=== PATIENT | male | born 1970 | race Caucasian/White ===

== ENCOUNTER → 2020-03-09 | Outpatient (CLI) | payer BC | END | disposition home or self-care (01) | LOC: MRI 02-22 15:00 | DX: M25.512 Pain in left shoulder (principal) ==

== ENCOUNTER → 2021-02-18 | Outpatient (CLI) | payer BC | END | disposition home or self-care (01) | LOC: RAD 16:09 | PROVIDERS: ATTEND Pain Medicine Pain Medicine | DX: M17.11 Unilateral primary osteoarthritis, right knee (principal); M25.761 Osteophyte, right knee; M47.896 Other spondylosis, lumbar region; M51.16 Intervertebral disc disorders with radiculopathy, lumbar region; M54.5 Low back pain ==